=== PATIENT | male | born 1955 | race Caucasian/White ===

== ENCOUNTER 2021-05-08 18:53 | Emergency (ER) | payer MEDICARE, OTHER ==
[2021-05-08] MEDS ORDERED: Acetaminophen 500 MG TAB ONE (19:14)
[2021-05-08] MEDS ORDERED: Thiamine HCl 200 MG/2 ML VIAL ONE (19:40)
[2021-05-08] MEDS ORDERED: Dextrose 5 %-0.45 % NaCl 1,000 ML ONE (19:40)
[2021-05-08] MEDS ORDERED: Multivit, Adult Inj 10 ML VIAL ONE (19:43)
[2021-05-08] MEDS ORDERED: Sodium Chloride 0.9% 1,000 ML ONE (19:57)
[2021-05-08] MEDS ORDERED: Cefepime 2 GM VIAL ONE (19:57)
[2021-05-08 19:58] LABS: ALT (SGPT) 15 U/L (8-55); AST (SGOT) 27 U/L (5-34); Albumin 3.2 g/dL (3.4-4.8); Alcohol Less than 10 mg/dL (Less than 10); Alkaline Phosphatase 72 U/L (40-110); Anion Gap 15 mmol/L (10-20); BUN (Urea Nitrogen) 9 mg/dL (8.4-25.7); CK (CPK) 338 U/L (30-200); Calc. Creatinine Clearance 0 mL/min (70-130); Calcium 7.9 mg/dL (7.8-10.44); Carbon Dioxide 20 mmol/L (23-31); Chloride 100 mmol/L (98-107); Glucose 116 mg/dL (80-115); Potassium 3.1 mmol/L (3.5-5.1); Protein, Total 6.2 g/dL (5.8-8.1); Salicylate Less than 8.0 mg/dL (15.0-30.0); Sodium 132 mmol/L (136-145)
[2021-05-08 20:04] LABS: #Basophils 0.1 thou/uL (0.0-0.2); #Lymphocytes 0.4 thou/uL (1.20-3.40); #Neutrophils 6.4 thou/uL (1.40-6.50); %Basophils 0.7 % (0.0-1.0); %Monocytes 13.2 % (0.0-10.0); Anisocytosis SLIGHT = 6-15 cells (100X) (0-5/hpf); Hemoglobin 9.6 g/dL (14.0-18.0); MDiff Complete? YES; Mean Corpuscular HGB CONC 30.5 g/dL (32.0-36.0); Mean Corpuscular Hemoglobin 24.3 pg (27.0-31.0); Mean Corpuscular Volume 79.6 fL (78.0-98.0); Mean Platelet Volume 6.8 fL (7.4-10.4); Ovalocytes SLIGHT = 2-5 cells (100X) (0-1/hpf); Platelet Count 240 thou/uL (130-400); Platelet Morphology Comment Appears Adequate; RBC Distribution Width 20.5 % (11.5-14.5); Red Blood Cell (RBC) Count 3.95 mill/uL (4.70-6.10); White Blood Cell (WBC) Count 7.8 thou/uL (4.8-10.8)
[2021-05-08 21:03] LABS: Bilirubin Negative (Negative); Blood, Urine Negative (Negative); Clarity Clear (Clear); Glucose, Urine (Dipstick) Negative (Negative); Ketone, Urine 40 mg/dL (Negative); Leukocyte Negative (Negative); Nitrite Negative (Negative); Protein, Urine (Dipstick) 30 mg/dL (Neg-Trace); Urobilinogen 0.2 mg/dL (Less than 2); pH, Urine 5.5 (5.0-9.0)
[2021-05-08 21:09] LABS: RBC/HPF None Seen HPF (0-3); Squamous Epithelial 0-3 HPF (0-3); WBC/HPF 0-3 HPF (0-3)
[2021-05-08 21:13] LABS: Amphetamine Not Detected (NotDetected); Barbiturates Screen Not Detected (NotDetected); Benzodiazepine Screen Not Detected (NotDetected); Cocaine Metabolite Screen Not Detected (NotDetected); Medtox Control Line Valid? VALID (VALID); Methadone Not Detected (NotDetected); Methamphetamine Not Detected (NotDetected); Opiate Screen Not Detected (NotDetected); Oxycodone Screen Not Detected (NotDetected); Phencyclidine (PCP) Not Detected (NotDetected); THC/Cannabinoid Screen Not Detected (NotDetected); Tricyclic Screen Not Detected (NotDetected)
[2021-05-08] MEDS ORDERED: Potassium Chloride 20 MEQ TAB ONE (21:13)
[2021-05-08 22:01] LABS: SARS-CoV-2 NAA Rapid Test Not Detected (NotDetected)
[2021-05-09] MEDS ORDERED: Cefepime 2 GM VIAL ONE (06:22)
== END 2021-05-09 08:32 | disposition short-term general hospital (02) ==
LOC: MADERS 18:53
DX: L03.116 Cellulitis of left lower limb (principal); I25.2 Old myocardial infarction; E11.9 Type 2 diabetes mellitus without complications
CPT/HCPCS: 70450; 71045; 80053; 80306; 80307; 81003; 81015; 82140; 82550; 83605; 83880; 84443; 85025; 87040; 87149; 93005; 96365; 96366; 96367; 96375; J0692; J3370; J3411; J7042; J7050; U0002